=== PATIENT | female | born 1955 | race Caucasian/White ===

== ENCOUNTER 2016-12-17 11:16 | Day surgery (SDC) | payer OTHER, SELFPAY ==
[2016-12-10 14:49] LABS: HEMATOCRIT 43.9 % (36.0-48.0); HEMOGLOBIN 15.1 g/dL (12.0-16.0)
[2016-12-10 15:05] LABS: BUN (BLOOD UREA NITROGEN) 13 MG/DL (6-23); CALCIUM, SERUM 9.3 MG/DL (8.5-10.4); CHLORIDE, SERUM 103 MMOL/L (96-112); CO2 (CARBON DIOXIDE) 27 MMOL/L (24-34); CREATININE 1.52 MG/DL (0.55-1.02); GFR AFRICAN AMERICAN 42 ML/MIN (>=60); GFR NON AFRICAN AMERICAN 36 ML/MIN (>=60); GLUCOSE, SERUM 118 MG/DL (60-99); POTASSIUM, SERUM 4.2 MMOL/L (3.5-5.3); SODIUM, SERUM 140 MMOL/L (135-148)
--- NOTE | ~2016-12-17 | OP ---
Record Of Operation [facility] [address] [place]. [address] NAME: ALBERTO BARBA : 53 STATUS : [facility]#: [id number] AGE: 61 ADM/REG DATE : 12/17/16 MR#: [id number] REPORT SERV DATE: 12/18/16 DICTATED BY: VERONIKA NIEVES DATE: 12/18/16 REPORT STATUS : Draft TRANSCRIBED BY: MODL DATE: 12/18/16 DATE OF PROCEDURE: 12/17/2016 PREOPERATIVE DIAGNOSES: 1. History of dermatofibrosarcoma protuberans of the right chest. 2. Right chest wound 17 x 18 cm. PROCEDURE PERFORMED: Split-thickness skin graft, right chest, 17 x 18 cm. RESIDENT: Sergei Hanley. ANESTHESIA: General endotracheal. COMPLICATIONS: None. ESTIMATED BLOOD LOSS: Minimal. 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 She has undergone resection of this lesion by Dr. Fields. Now, she has a defect of the skin and subcutaneous tissues extending down to the muscle of the right upper chest measuring 17 x 18 cm. She is appropriate for skin grafting of that defect. DESCRIPTION OF PROCEDURE: After consent was obtained, the patient was identified and taken to the operating room. She underwent general anesthesia. She underwent resection of dermatofibrosarcoma protuberans of the right upper chest by Dr. Fields, leaving a 17 x 8 cm defect extending down to the pectoralis muscle. Discussion with Dr. Fields regarding the options since final pathology margins will be 4-5 days for review. Plan will be to close the wound with a split-thickness skin graft as this will allow for further resection if needed. We prefer this option instead of leaving the wound open as it is such a large wound. The wound was irrigated with saline. The skin edges were then sutured down to the chest wall muscle fascia to cover the exposed fatty tissue. This was performed around the circumference of the wound. Next, using a dermatome, set at 08/1000 of an inch, the split- thickness skin graft was obtained from the right thigh, it was meshed 1 to 1.5. The donor site on the thigh was dressed with a large Ioban. The meshed skin graft was then applied to the right upper chest wound 17 x 18 cm. It was secured around the periphery with a combination of rickie and chromic sutures. The skin graft was then bolstered in position using Xeroform gauze, glycerin-soaked cotton balls, and a tie-over bolster using silk sutures. This was covered with gauze dressing and paper tape. The patient tolerated the procedure well. She was extubated and transferred to the recovery area. She will be discharged home and will follow up with me in five-six days. CIRILO/JEVON Record Of [address] [place] [address] NAME: ALBERTO BARBA : 53 STATUS : [facility]#: [id number] AGE: 61 ADM/REG DATE : 12/17/16 MR#: [id number] REPORT SERV DATE: 12/18/16 DICTATED BY: VERONIKA NIEVES DATE: 12/18/16 REPORT STATUS : Draft TRANSCRIBED BY: JEVON DATE: 12/18/16 Veronika Nieves M.D. / [id number] CC: Richard Fields M.D. NO PCP
--- NOTE | ~2016-12-17 | OP ---
Record Of Operation [facility] [address] [place]. [address] NAME: ALBERTO BARBA : 53 STATUS : [facility]#: [id number] AGE: 61 ADM/REG DATE : 12/17/16 MR#: [id number] REPORT SERV DATE: 12/18/16 DICTATED BY: GRACIE FIELDS DATE: 12/18/16 REPORT STATUS : Draft TRANSCRIBED BY: MODL DATE: 12/18/16 DATE OF PROCEDURE: 12/17/2016 PREOPERATIVE DIAGNOSIS: Recurrent dermatofibrosarcoma protuberans. POSTOPERATIVE DIAGNOSIS: Recurrent dermatofibrosarcoma protuberans. PROCEDURE: Wide excision of the recurrent dermatofibrosarcoma protuberans of the right manubrial skin as well as excision of the adjacent pustular lesion, grossly quite different appearing. SURGEON: Gracie Fields M.D. ANESTHESIA: General laryngeal mask. ESTIMATED BLOOD LOSS: 75 mL. FLUIDS: Crystalloid. SPECIMEN: Patch of skin from the right manubrial upper inner breast 18 x 17 cm full- thickness to fascia as well as adjacent pustular-type skin lesion on the neck. DRAINS: None. COMPLICATIONS: None. CONDITION: Good. INDICATIONS: Ms. Barba is a very pleasant 61-year-old, who I have excised and skin grafted for dermatofibrosarcoma protuberans number of years ago. There were positive margins of excision that I was unable and follow to determine where they were located. Over time, she has developed 2 small protuberant areas that on biopsy confirmed recurrent dermatofibrosarcoma protuberans. Reviewing risks and options, I have recommended a wide re- excision of all of the area. The previous skin graft I did, I thought looked actually quite poorly, and I have asked for plastic surgical assistance, and Dr. Nieves has kindly agreed to help perform wound closure after the wide excision. PROCEDURE IN DETAIL: After being identified and marked in preop holding, she was brought to the operating room and positioned supine. General laryngeal mask anesthesia was induced. Time-out was performed. Ancef was given intravenously. The right neck and chest as well as right lower extremity were prepped and draped sterilely. We marked out with a ruler a 2-3 cm margin of completely normal skin, circumferential. Somewhat superior to this, was as a small skin lesion on the right inferior neck, a central dimple, inflammatory in nature. I elected to widely excise the recurrent skin tumor with the skin grafted area and this was done with a local infiltration of the skin and subcu at the periphery, and we then reflected the subcu off the chest wall. Placed orienting sutures in the specimen which again was 17 x Record Of Operation [facility] [address] [place]. [address] NAME: ALBERTO BARBA : 53 STATUS : [facility] PAT#: [id number] AGE: 61 ADM/REG DATE : 12/17/16 MR#: [id number] REPORT SERV DATE: 12/18/16 DICTATED BY: GRACIE FIELDS DATE: 12/18/16 REPORT STATUS : Draft TRANSCRIBED BY: JEVON DATE: 12/18/16 18 cm, and was sent for a formal in histology. There was good hemostasis and a moist lap was placed. There was a small vessel coursing toward the supraclavicular fossa that was ligated with 3-0 Vicryl. This was a vascular vessel not lymphatic as there was venous bleeding. This small pustular inflammatory skin lesion on the neck, a couple of inches above the excision, was then elliptically excised. Closed with interrupted 3-0 nylon x3. At this point, Dr. Nieves, scrubbed into the field and proceeded with skin grafting. The patient tolerated the surgery well. JOHN Gracie Fields M.D. / [id number] CC: Gracie Fields M.D.
[~2016-12-17 11:16] MED LIST: BEN25 PO; VALIUM10 MG PO
== END 2016-12-17 18:48 | disposition home or self-care (01) ==
LOC: SDC 11:16
PROVIDERS: Surgery; Surgery Plastic and Reconstructive Surgery
PROC: 0HB5XZZ Excision of Chest Skin, External Approach (ICD-10-PCS; principal; 2016-12-17 12:45)
PROC: 0HR5X74 Replacement of Chest Skin with Autologous Tissue Substitute, Partial Thickness, External Approach (ICD-10-PCS; 2016-12-17 12:45)
DX: C44.599 Other specified malignant neoplasm of skin of other part of trunk (principal); L08.9 Local infection of the skin and subcutaneous tissue, unspecified; I10 Essential (primary) hypertension; M19.90 Unspecified osteoarthritis, unspecified site; G43.909 Migraine, unspecified, not intractable, without status migrainosus; F41.9 Anxiety disorder, unspecified; F32.9 Major depressive disorder, single episode, unspecified; D64.9 Anemia, unspecified; K21.9 Gastro-esophageal reflux disease without esophagitis; Z90.710 Acquired absence of both cervix and uterus; Z88.5 Allergy status to narcotic agent; Z79.899 Other long term (current) drug therapy; Z98.890 Other specified postprocedural states
CPT/HCPCS: 80048; 85014; 85018; 88305; 88309; 88342; 93005; A9270-GY; J0690; J1170; J2175; J2250; J2405; J2710; J3010